=== PATIENT | female | born 1985 | race African-American/Black ===

== ENCOUNTER 2024-12-01 18:07 | Inpatient (IN) | payer BC, MEDICAID ==
[~2024-12-01] VITALS: Ht 165.1 cm; Wt 88.0 kg
[2024-12-01 18:09] VITALS: O2SAT 99
[2024-12-01 19:26] LABS: HEMATOCRIT. 26.1 % (36.0-48.0); HEMOGLOBIN. 8.4 g/dL (12.0-16.0); MEAN PLATELET VOLUME 8.5 fl (7.4-10.4); PLATELET 72 x1000/uL (130-400); RED BLOOD CELL COUNT 2.52 mill/uL (4.2-5.4); RED CELL DISTRIBUTION WIDTH 23.9 % (11.6-14.6)
[2024-12-01 19:40] LABS: CREATININE 4.2 mg/dL (0.6-1.0)
[2024-12-01 19:41] LABS: TROPONIN I HIGH SENSITIVITY 8 ng/L (3.0-34); UREA NITROGEN BLOOD 30 mg/dL (9-23)
[2024-12-01 19:42] LABS: ASPARTATE AMINOTRANSFERASE 9 IU/L (<34); BILIRUBIN DIRECT 0.1 mg/dL (<=3.0)
[2024-12-01 19:43] LABS: BILIRUBIN TOTAL 0.4 mg/dL (0.1-1.0); PROTEIN TOTAL 5.4 g/dL (6.0-8.3)
[2024-12-01 19:52] LABS: EOSINOPHILS % MANUAL 1.0 % (0.0-5.0); LYMPHOCYTES % MANUAL 6.0 % (20.0-60.0); MONOCYTES % MANUAL 11.0 % (2.0-8.0); NEUTROPHILS % MANUAL 82.0 % (45.0-75.0); PLATELET ESTIMATE DECREASED
[2024-12-01] MEDS: MAGNESIUM/ALUMINUM HYDROXIDE/SIMETHICONE 30ML UDC PO ONE (20:25)
[2024-12-01] MEDS ORDERED: ONDANSETRON HCL 4MG/2ML INJ IV PRN (22:15)
[2024-12-01] MEDS ORDERED: MAGNESIUM/ALUMINUM HYDROXIDE/SIMETHICONE 30ML UDC PO PRN (22:15)
[2024-12-01] MEDS ORDERED: ACETAMINOPHEN 325MG TABLET PO PRN (22:15)
[2024-12-01 22:41] LABS: TROPONIN I HIGH SENSITIVITY 7 ng/L (3.0-34)
[2024-12-01] MEDS: SODIUM CHLORIDE 0.9% 250 ML IV NR (23:13)
[2024-12-01] MEDS: HYDROCODONE/ACETAMINOPHEN 7.5/325MG TABLET PO NR (23:15)
[2024-12-02] VITALS (7 sets, daily range): BP systolic 100–116; BP diastolic 63–80; PULSE 64–102; RESP 16–19; TEMP 36.1–37.1; O2SAT 98–100
[2024-12-02] MEDS: MIDODRINE HCL 5MG TABLET PO SCH (00:37)
[2024-12-02] MEDS ORDERED: APIXABAN 2.5 MG TABLET PO SCH (09:00)
[2024-12-02] MEDS: PREDNISONE 20MG TABLET PO SCH (09:21)
[2024-12-02] MEDS: PANTOPRAZOLE SODIUM 40 MG/VIAL IV SCH (09:21)
[2024-12-02 12:48] LABS: HEMATOCRIT. 26.2 % (36.0-48.0); HEMOGLOBIN. 8.2 g/dL (12.0-16.0); MEAN PLATELET VOLUME 9.3 fl (7.4-10.4); PLATELET 58 x1000/uL (130-400); RED BLOOD CELL COUNT 2.52 mill/uL (4.2-5.4); RED CELL DISTRIBUTION WIDTH 23.7 % (11.6-14.6)
[2024-12-02 13:04] LABS: TRIGLYCERIDE 128.0 mg/dL (0-150)
[2024-12-02 13:05] LABS: LDL CHOLESTEROL 57.0 mg/dL (5-100)
[2024-12-02 13:06] LABS: T4 FREE 1.3 ng/dL (0.89-1.76)
[2024-12-02 13:07] LABS: UREA NITROGEN BLOOD 36 mg/dL (9-23)
[2024-12-02 13:08] LABS: LACTATE DEHYDROGENASE 225 IU/L (120-246)
[2024-12-02 13:26] LABS: CREATININE 6.0 mg/dL (0.6-1.0)
[2024-12-02 13:42] LABS: HEPATITIS A AB IGM NEGATIVE (Negative)
[2024-12-02 13:43] LABS: HEPATITIS B CORE AB IGM NEGATIVE (Negative); HEPATITIS C AB NON REACTIVE (Neg) (Negative)
[2024-12-02] MEDS: KETOROLAC 15MG/ML VIAL IV PRN (18:12)
[2024-12-02] MEDS: EPOETIN ALFA-EPBX 4,000 UNITS/ML VIAL SUBCUT SCH (21:27)
[2024-12-03] VITALS (14 sets, daily range): BP systolic 90–128; BP diastolic 44–87; PULSE 67–92; RESP 16–18; TEMP 36.1–36.78072; O2SAT 97–100
[2024-12-03 00:24] LABS: FOLIC ACID (FOLATE) SERUM 5.14 ng/mL (>5.38); VITAMIN B12 SERUM 338 pg/mL (211-911)
[2024-12-03 01:11] LABS: CLARITY URINE TURBID (CLEAR); COLOR URINE YELLOW (YELLOW); GLUCOSE URINE NEGATIVE (NEGATIVE); KETONES URINE NEGATIVE (NEGATIVE); LEUKOCYTE ESTERASE URINE 3+ (NEGATIVE); NITRITE URINE NEGATIVE (NEGATIVE); OCCULT BLOOD URINE 1+ (NEGATIVE); PH URINE 8.5 (4.5-8.0); PROTEIN URINE 2+ (NEGATIVE); SPECIFIC GRAVITY URINE 1.010 (1.005-1.030); UROBILINOGEN URINE 0.2 E.U./dL (0.2-1.0)
[2024-12-03 03:30] LABS: SQUAMOUS EPITHELIAL CELL URINE 3+ /lpf (RARE/1+)
[2024-12-03 03:32] LABS: RBC URINE 0-2 /hpf (0-2)
[2024-12-03 03:33] LABS: BACTERIA URINE 3+
[2024-12-03] MEDS: DOCUSATE SODIUM 100MG CAPSULE PO PRN (05:49)
[2024-12-03] MEDS: CEFTRIAXONE 1GM/50ML 50 ML IV SCH (05:50)
[2024-12-03 07:06] LABS: BASOPHILS % 0.5 % (0.0-2.0); EOSINOPHILS % 1.1 % (0.0-5.0); HEMATOCRIT. 24.6 % (36.0-48.0); HEMOGLOBIN. 7.9 g/dL (12.0-16.0); LYMPHOCYTES % 8.9 % (20.0-50.0); MEAN PLATELET VOLUME 9.1 fl (7.4-10.4); MONOCYTES % 12.6 % (2.0-8.0); NEUTROPHILS % 76.9 % (40.0-76.0); PLATELET 54 x1000/uL (130-400); RED BLOOD CELL COUNT 2.40 mill/uL (4.2-5.4); RED CELL DISTRIBUTION WIDTH 23.0 % (11.6-14.6)
[2024-12-03 07:22] LABS: UREA NITROGEN BLOOD 47 mg/dL (9-23)
[2024-12-03 07:24] LABS: ASPARTATE AMINOTRANSFERASE 10 IU/L (<34); BILIRUBIN DIRECT 0.1 mg/dL (<=3.0); BILIRUBIN TOTAL 0.3 mg/dL (0.1-1.0); PHOSPHORUS 4.5 mg/dL (2.5-4.9); PROTEIN TOTAL 5.3 g/dL (6.0-8.3)
[2024-12-03 07:26] LABS: CREATININE 8.1 mg/dL (0.6-1.0)
[2024-12-03 09:42] LABS: LYMPHOCYTES % MANUAL 2.0 % (20.0-60.0); MONOCYTES % MANUAL 7.0 % (2.0-8.0); NEUTROPHILS % MANUAL 91.0 % (45.0-75.0); PLATELET ESTIMATE DECREASED
[2024-12-03] MEDS: ACETAMINOPHEN 325MG TABLET PO PRN (21:42)
[2024-12-04] VITALS: BP 129/75; PULSE 83; RESP 16; TEMP 36.6; O2SAT 96
[2024-12-04 04:00] VITALS: BP 121/82; PULSE 72; RESP 17; TEMP 36.3; O2SAT 99
[2024-12-04 07:51] LABS: BASOPHILS % 0.3 % (0.0-2.0); EOSINOPHILS % 0.3 % (0.0-5.0); HEMATOCRIT. 25.6 % (36.0-48.0); HEMOGLOBIN. 8.1 g/dL (12.0-16.0); LYMPHOCYTES % 11.9 % (20.0-50.0); MEAN PLATELET VOLUME 9.5 fl (7.4-10.4); MONOCYTES % 12.2 % (2.0-8.0); NEUTROPHILS % 75.3 % (40.0-76.0); PLATELET 58 x1000/uL (130-400); RED BLOOD CELL COUNT 2.47 mill/uL (4.2-5.4); RED CELL DISTRIBUTION WIDTH 22.8 % (11.6-14.6)
[2024-12-04 08:00] VITALS: BP 130/80; PULSE 81; RESP 16; TEMP 36.4; O2SAT 95
[2024-12-04 08:11] LABS: UREA NITROGEN BLOOD 41 mg/dL (9-23)
[2024-12-04 08:13] LABS: ADD RBC MORPHOLOGY NO; PHOSPHORUS 4.8 mg/dL (2.5-4.9)
[2024-12-04 08:25] LABS: CREATININE 7.8 mg/dL (0.6-1.0)
[2024-12-04 12:00] VITALS: BP 130/81; PULSE 78; RESP 16; TEMP 36.4; O2SAT 97
[2024-12-04] MEDS ORDERED: LEVO-65 MT (14:47)
[2024-12-04 15:26] VITALS: BP 125/78; PULSE 85; RESP 18; TEMP 98
[2024-12-04 16:00] VITALS: BP 120/83; PULSE 91; RESP 16; TEMP 36.4; O2SAT 96
== END 2024-12-04 16:24 | disposition home or self-care (01) | DRG 871 ==
LOC: ER 18:07 → ENRESERV 22:23 → 5WST 22:40
PROVIDERS: ADMIT Internal Medicine; ATTEND Internal Medicine
PROC: 5A1D70Z Performance of Urinary Filtration, Intermittent, Less than 6 Hours Per Day (ICD-10-PCS; principal; 2024-12-03)
DX: A41.9 Sepsis, unspecified organism (principal); N18.6 End stage renal disease; D84.9 Immunodeficiency, unspecified; I12.0 Hypertensive chronic kidney disease with stage 5 chronic kidney disease or end stage renal disease; N39.0 Urinary tract infection, site not specified; R65.20 Severe sepsis without septic shock; I95.3 Hypotension of hemodialysis; D64.9 Anemia, unspecified; D69.6 Thrombocytopenia, unspecified; M32.9 Systemic lupus erythematosus, unspecified; E78.5 Hyperlipidemia, unspecified; M10.9 Gout, unspecified; Z99.2 Dependence on renal dialysis; Z88.2 Allergy status to sulfonamides; Z82.49 Family history of ischemic heart disease and other diseases of the circulatory system
CPT/HCPCS: 36415; 71045; 80048; 80061; 80076; 81003; 82270; 82607; 82728; 82746; 83540; 83550; 83615; 83735; 83880; 84100; 84439; 84443; 84484; 85025; 85044; 85379; 86705; 86709; 87077; 87186; 87340; 90935; 93005; 99285; J0696; J0885; J1885; J2470; J7512